=== PATIENT | male | born 2000 | race Caucasian/White ===

== ENCOUNTER 2018-05-02 13:38 | Emergency (ER) | payer MEDICAID ==
[~2018-05-02] VITALS: Ht 188 cm; Wt 97.5 kg
[2018-05-02 14:13] VITALS: BP_SYST 109
[2018-05-02 15:05] VITALS: BP_SYST 109
== END 2018-05-02 15:05 | disposition home or self-care (01) ==
LOC: SED 13:38
DX: J06.9 Acute upper respiratory infection, unspecified (principal); F17.210 Nicotine dependence, cigarettes, uncomplicated; Z71.6 Tobacco abuse counseling; Z88.8 Allergy status to other drugs, medicaments and biological substances
CPT/HCPCS: 99283